=== PATIENT | male | born 1995 | race Asian ===

== ENCOUNTER 2022-02-10 04:18 | Day surgery (SDC) | payer OTHER ==
[2022-02-06 10:09] VITALS: BMI 29.8
[2022-02-10] MEDS ORDERED: MIDAZOLAM HCL 2 MG/2 ML SINGLE DOSE VIAL ONE (07:18)
[2022-02-10] MEDS ORDERED: FENTANYL CITRATE/PF 50 MCG/ML VIAL ONE ×2 (07:18→07:47)
[2022-02-10] MEDS ORDERED: BACITRACIN 15 GM TUBE TOPICAL OINTMENT ONE (07:23)
[2022-02-10] MEDS ORDERED: BUPIVACAINE HCL/PF 0.25% (2.5MG/ML) 10 ML VIAL ONE (07:23)
[2022-02-10] MEDS ORDERED: ceFAZolin SODIUM 1 GM VIAL IVPB ONE (07:37)
[2022-02-10] MEDS ORDERED: BUPIVACAINE HCL/PF 0.25% (2.5MG/ML) 10 ML VIAL IJ ONE (08:01)
[2022-02-10] MEDS ORDERED: DEXAMETHASONE SOD PHOSPHATE 4 MG/1 ML VIAL ONE (08:02)
[2022-02-10] MEDS ORDERED: KETOROLAC TROMETHAMINE 30 MG/1 ML VIAL ONE (08:02)
[2022-02-10] MEDS ORDERED: ceFAZolin SODIUM 1 GM VIAL ONE (08:02)
[2022-02-10] MEDS ORDERED: ONDANSETRON 4 MG/2 ML VIAL ONE (08:02)
[2022-02-10] MEDS ORDERED: oxyCODONE HCL 5 MG TABLET PO PRN ×3 (08:21→11:33)
[2022-02-10] MEDS ORDERED: ACETAMINOPHEN INJECTION 100 ML IVPB ONE (08:25)
[2022-02-10] MEDS ORDERED: ACETAMINOPHEN 1000 MG/100 ML BAG IVPB ONE ×2 (08:28→11:33)
[2022-02-10] MEDS ORDERED: DEXTROSE 5%-0.45% SALINE 1,000 ML IV SCH (08:30)
[2022-02-10] MEDS ORDERED: ONDANSETRON 4 MG/2 ML VIAL IVPUSH PRN ×2 (09:31→11:33)
[2022-02-10] MEDS ORDERED: LACTATED RINGERS SOLUTION 1,000 ML IV SCH ×2 (09:45→11:45)
[2022-02-10 10:03] VITALS: TEMP 97
[2022-02-10 10:10] VITALS: BP 115/72; PULSE 80; RESP 18
== END 2022-02-10 11:04 | disposition home or self-care (01) ==
LOC: JASU-SURG 04:18
PROVIDERS: ATTEND Urology
PROC: 0VTTXZZ Resection of Prepuce, External Approach (ICD-10-PCS; principal; 2022-02-10 07:30)
DX: N47.1 Phimosis (principal)
CPT/HCPCS: 88304-TC; 94760